=== PATIENT | male | born 1995 | race Caucasian/White ===

== ENCOUNTER 2016-11-09 09:08 | Observation (INO) ==
--- NOTE | 2016-11-09 10:29 | Emergency Department Note ---
Disposition Clinical Impression: Swallowed foreign body Qualifiers: Encounter type: initial encounter Qualified Code(s): T18.9XXA - Foreign body of alimentary tract, part unspecified, initial encounter Disposition: Admitted As Inpatient Condition: Good Time of Disposition: 13:21 General Adult HPI - General Chief complaint: ED General Medical Stated complaint: SWALLOWED FB Time Seen by Provider: 11/09/16 09:21 Source: patient, police Limitations: no limitations Nursing Notes Reviewed: Yes Vital Signs Reviewed: Yes - History of Present Illness HPI Narrative: Presents with complaint of left upper quadrant pain which started this morning and is constant and minimal to moderate and is sharp in character and began shortly after he swallowed several razor blades at the prison. This was witnessed by the staff. The patient has not had any urine output or bowel movements and does not know about blood in the urine or stool. No fever or vomiting or diarrhea. He has never tried to end his life however at this point does feel suicidal. He does not have a defined plan. He said he took the razor blades because his family is not speaking to them and hopefully this will help to get some to speak with him. He denies any visual or auditory hallucinations. Social history: Smoker Pain Scale: 5 - Related Data Home Medications Medication Instructions Recorded Confirmed Albuterol Sulfate [Ventolin Hfa] 2 puff IH Q6H PRN 11/09/16 11/09/16 Lansoprazole [Prevacid] 30 mg PO DAILY 11/09/16 11/09/16 Loratadine [Claritin] 10 mg PO DAILY 11/09/16 11/09/16 Tramadol HCl [Ultram] 50 mg PO QID PRN 11/09/16 11/09/16 Allergies Allergy/AdvReac Type Severity Reaction Status Date / Time azithromycin AdvReac Rash Verified 11/09/16 09:09 Review of Systems: Constitutional: No fever Vision: No blurred vision ENT: No rhinorrhea Respiratory: No cough Allergic: No allergies : No blood in urine GI: No blood in stool Hematologic: No bruising Dermatologic: No skin rash Musculoskeletal: No pain in the extremities Neuro: No numbness of the extremities Past Medical History - Past Medical History Medical history: Reports: other Surgical history: Reports: no surgical history Psychiatric history: Reports: no psych history - Social History Smoking Status: Current every day smoker Smokeless Tobacco Status: No Alcohol use: Reports: occasionally Drug use: Reports: none Physical Exam CONSTITUTIONAL: Alert and oriented X3, well-nourished, well appearing, in no apparent distress HEAD: Normocephalic; atraumatic. EYES: PERRL, no scleral icterus. NOSE: The nose is normal in appearance without rhinorrhea RESP: Normal chest excursion with respiration; breath sounds clear and equal bilaterally; no wheezes, rhonchi, or rales CARD: Regular rhythm, without murmurs, rub or gallop ABD: Non-distended; normal appearance, minimal discomfort with palpation left upper quadrant but soft without rigidity, rebound, guarding. Elsewhere the abdomen does have minimal discomfort right upper quadrant but very minimal,, elsewhere the abdomen is non-tender, soft,without rigidity, rebound or guarding SKIN: Normal for age and race; warm and dry; no apparent lesions - General Limitations: no limitations General appearance: alert Course Vital Signs Temperature 98.4 F 11/09/16 09:09 Pulse Rate 60 11/09/16 09:09 Respiratory Rate 20 11/09/16 09:09 Blood Pressure 129/84 11/09/16 09:09 O2 Sat by Pulse Oximetry 99 11/09/16 09:09 Temperature 98.4 F 11/09/16 09:09 Pulse Rate 47 11/09/16 12:48 Respiratory Rate 18 11/09/16 13:16 Blood Pressure 128/78 11/09/16 13:16 O2 Sat by Pulse Oximetry 98 11/09/16 12:48 Oxygen Delivery Oxygen Delivery Room Air Medical Decision Making - MDM Narrative Medical decision making narrative: Does show a metallic foreign body left upper abdomen without evidence of perforation and these results are reviewed and I did visualize the CT also. Patient does have labs ordered because will need to be evaluated by the 180 service for possible psychiatric services. We will discuss further with GI. 1029 I did review the patient's test results. I did speak with the hospitalist who accepts the patient for admission. I did speak with the [facility] service who would like the hospitalist to consult them for ongoing psychiatric care. I did speak with the ice guard tester and a formed and the patient was being admitted. The patient will have an acute abdominal series the morning and be closely monitored here in the hospital. 1320 - Lab Data Result diagrams: 11/09/16 10:36 11/09/16 10:36 Lab Results 11/09/16 11/09/16 11/09/16 Range/Units 10:23 10:36 10:36 WBC 4.6 (4.3-11.1) K/mcL RBC 5.00 (4.19-5.50) M/mcL Hgb 15.5 (12.9-16.9) g/dL Hct 42.8 (37.5-50.1) % MCV 85.6 (83.0-100.0) fL MCH 31.0 (28.0-33.3) pg MCHC 36.2 H (31.6-35.5) g/dL RDW 11.8 (11.5-14.5) % Plt Count 216 (140-400) K/mcL MPV 10.5 (9.4-12.4) fL Sodium 139 (136-145) mEq/L Potassium 4.2 (3.5-4.5) mEq/L Chloride 103 (98-109) mEq/L Carbon Dioxide 29 (19-29) mEq/L BUN 8 (8-26) mg/dL Creatinine 0.92 (0.72-1.25) mg/dL Est GFR ( Amer) > 60 (> 60) Est GFR (Non-Af Amer) > 60 (> 60) BUN/Creatinine Ratio 9 (6-26) Glucose 91 (70-99) mg/dL Calculated Osmolality 286 (280-300) Calcium 10.0 (8.6-10.8) mg/dL TSH (0.350-4.840) mcIU/mL Salicylates (15-30) mg/dL Urine Opiates Screen Negative (Yekbdm=085) ng/mL Acetaminophen (10-30) mcg/mL Ur Barbiturates Screen Negative (Ortixp=246) ng/mL Ur Phencyclidine Scrn Negative (Cutoff=25) ng/mL Ur Amphetamines Screen Negative (Tqgnmh=3305) ng/mL U Benzodiazepines Scrn Negative (Bpcwzr=602) ng/mL Urine Cocaine Screen Negative (Cutoff= 300) ng/mL U Marijuana (THC) Screen Negative (Cutoff = 50) ng/mL Ethyl Alcohol (0-10) mg/dL 11/09/16 Range/Units 10:36 WBC (4.3-11.1) K/mcL RBC (4.19-5.50) M/mcL Hgb (12.9-16.9) g/dL Hct (37.5-50.1) % MCV (83.0-100.0) fL MCH (28.0-33.3) pg MCHC (31.6-35.5) g/dL RDW (11.5-14.5) % Plt Count (140-400) K/mcL MPV (9.4-12.4) fL Sodium (136-145) mEq/L Potassium (3.5-4.5) mEq/L Chloride (98-109) mEq/L Carbon Dioxide (19-29) mEq/L BUN (8-26) mg/dL Creatinine (0.72-1.25) mg/dL Est GFR ( Amer) (> 60) Est GFR (Non-Af Amer) (> 60) BUN/Creatinine Ratio (6-26) Glucose (70-99) mg/dL Calculated Osmolality (280-300) Calcium (8.6-10.8) mg/dL TSH 1.696 (0.350-4.840) mcIU/mL Salicylates < 5.0 L (15-30) mg/dL Urine Opiates Screen (Clcmux=198) ng/mL Acetaminophen < 1.0 L (10-30) mcg/mL Ur Barbiturates Screen (Uskopr=237) ng/mL Ur Phencyclidine Scrn (Cutoff=25) ng/mL Ur Amphetamines Screen (Mkzvgl=2804) ng/mL U Benzodiazepines Scrn (Fadbvf=744) ng/mL Urine Cocaine Screen (Cutoff= 300) ng/mL U Marijuana (THC) Screen (Cutoff = 50) ng/mL Ethyl Alcohol < 10 (0-10) mg/dL
[2016-11-09 10:42] LABS: Amphetamine Screen,Urine Negative ng/mL (Cutoff=1000); Barbiturate Screen,Urine Negative ng/mL (Cutoff=200); Benzodiazepines Screen,Urine Negative ng/mL (Cutoff=200); Cannabinoid Screen,Urine Negative ng/mL (Cutoff = 50); Cocaine Screen,Urine Negative ng/mL (Cutoff= 300); Opiate Screen,Urine Negative ng/mL (Cutoff=300); Phencyclidine Screen,Urine Negative ng/mL (Cutoff=25)
[2016-11-09 10:46] LABS: Hematocrit 42.8 % (37.5-50.1); Hemoglobin 15.5 g/dL (12.9-16.9); Mean Corpuscular HGB Conc 36.2 g/dL (31.6-35.5); Mean Corpuscular Volume 85.6 fL (83.0-100.0); Mean Platelet Volume 10.5 fL (9.4-12.4); Platelet Count 216 K/mcL (140-400); Red Cell Distribution Width 11.8 % (11.5-14.5)
[2016-11-09 10:58] LABS: BUN/Creatinine Ratio 9 (6-26); Blood Urea Nitrogen 8 mg/dL (8-26); Carbon Dioxide 29 mEq/L (19-29); Chloride 103 mEq/L (98-109); Glucose 91 mg/dL (70-99); Osmolality,Calculated 286 (280-300); Potassium 4.2 mEq/L (3.5-4.5); Sodium 139 mEq/L (136-145); eGFR For African Americans > 60 (> 60); eGFR For Non-African Americans > 60 (> 60)
[2016-11-09 11:03] LABS: Acetaminophen < 1.0 mcg/mL (10-30); Ethanol < 10 mg/dL (0-10); Salicylate < 5.0 mg/dL (15-30)
[2016-11-09 11:19] LABS: Thyroid Stimulating Hormone 1.696 mcIU/mL (0.350-4.840)
[2016-11-09] MEDS ORDERED: Acetaminophen 325 MG TABLET PO PRN (14:20)
[2016-11-09] MEDS ORDERED: Naloxone 0.4 MG/ML INJ IVP PRN (14:20)
[2016-11-09] MEDS ORDERED: Ondansetron 4 MG/2 ML VIAL IVP PRN (14:20)
[2016-11-09] MEDS ORDERED: *HR* Morphine 2 MG/ML SYRINGE IVP PRN (14:20)
[2016-11-09] MEDS ORDERED: Ipratropium/Albuterol Neb 3 ML IH PRN (14:25)
--- NOTE | 2016-11-09 14:34 | Internal Med History&Physical ---
<Jem Patten - Last Filed: 11/09/16 15:34> Date of Encounter: 11/09/16 Time of Encounter: 13:45 Assessment and Plan (1) Swallowed foreign body Current visit: Yes Status: Acute Patient presents from ED due to swallowing a razor blade while incarcerated for [place]. Patient states that he swallowed one razor blade which was wrapped in plastic. CT of the abdomen and pelvis today without contrast shows retained radiodense foreign body within the jejunum correlating with patient's clinical history of razor blade swallowing. Will order follow-up CT to follow progression of the foreign body. Monitor I&O. Surgical consult ordered for recommendations on diet and follow-up imaging needs. Qualifiers: Encounter type: initial encounter Qualified Code(s): T18.9XXA - Foreign body of alimentary tract, part unspecified, initial encounter (2) Suicidal ideation Current visit: Yes Status: Acute Patient presents with attempted suicide by swallowing a razor blade while he was incarcerated. Patient reports that he has never attempted suicide previously and that he has never been hospitalized for suicide attempts or psychiatric reasons. Mr. Casillas states that he currently has no SI/HI and has no plan in place to harm himself or others. Patient states that he swallowed one razor blade that was wrapped in plastic. Sitter ordered. Psychiatric consult placed. Patient to be pink-slipped until cleared by Psychiatry. (3) Homeless Current visit: Yes Status: Acute Patient presents with report of being homeless prior to being incarcerated for [place] two weeks ago. Patient reports that he is estranged from his family due to his current life choices. SW consult ordered to assess patient for rehab needs regarding his reported marijuana use as well as his living situation needs. (4) Anxiety and depression Current visit: Yes Status: Acute Patient reports he was recently diagnosed with anxiety and depression is currently on medications due to being incarcerated prior to seeing provider. Psychiatry consult ordered to assess patient and make recommendations for treatment options post-discharge. (5) Bradycardia Current visit: Yes Status: Chronic Patient presents with history of bradycardia that he states he has had since childhood and which was diagnosed at [facility] years ago. On examination, patient's HR is 60 bpm and shows no signs of arrhythmia or murmur. Patient to be monitored. (6) DVT prophylaxis Current visit: Yes Status: Acute Patient to be placed on DVT prophylaxis due to current admission protocol. Due to patient swallowing razor blade which places him at increased risk for GI bleed, pharmacologic DVT prophylaxis is contraindicated. Bilateral SCDs to be placed on patient's LEs. Internal Medicine - H&P: HPI Chief complaint: Swallowed a razor blade Admitted From: Emergency Dept Plans for Post Hospital Care: Home History of present illness: Mr. Casillas is a 21 year old male with medical history of bradycardia. Patient denies any surgical history but states that he was recently diagnosed with anxiety and depression but does not currently take medications for these. Patient presents to the ED due to swallowing one razor blade wrapped in plastic while incarcerated for [place]. Patient states he has never tried to commit suicide before and does not have suicidal ideations or homicidal ideations at this time. Patient also states he has no plan for self-harm. Patient reports a rift with his family which is causing him anxiety and that he was homeless prior to incarceration. Mr. Casillas denies recent illness, fever, chills, nausea, vomiting, unusual bleeding, vision changes, headache, cough, diarrhea, constipation, dizziness, lightheadedness, presyncope, or syncope. Patient does report abdominal pain in the lower left quadrant on examination. On admission, patient's temperature is 98.4F, HR is 60 bpm, RR is 20, BP 129/84 , and SpO2 is 99% on RA. Patient's initial lab work on admission is unremarkable. Urine tox screen shows salicylates less than 5.0 and acetaminophen less than 1.0. Mr. Caslilas is at moderate risk for continued anxiety and depression due to not receiving current treatment, attempted self- harm, and current symptoms and will be placed as observation status. Psychiatric consult ordered with sitter in place. Information obtained from patient, chart reviewed, and previous medical records. Patient is currently hemodynamically stable and in no acute distress. Time spent with patient greater than 40 minutes. Past Med Surg Social Fam HX - Past Medical History Source: patient Medical history: other (Bradycardia) Psychiatric history: anxiety, depression - Past Surgical History Surgical History: no surgical history - Social History Smoking Status: Current every day smoker Packs per day: 1 PPD Smokeless Tobacco Status: No Alcohol use: none Drug use: marijuana Occupational status: unemployed Current living situation: Homeless Activity Level: Independent ambulation, Very active Recent Out of Country Travel Within the Last 8 Weeks: No Exposure or Possible Exposure to Illness During Travel: No - Family History Father Race: Family Member Ethnicity: Non- Living Status: Still Living Hx Family Cardiac Disorders: Yes (HTN) Hx Family Endocrine Disorder: Yes (DM) Mother Race: Family Member Ethnicity: Non- Living Status: Still Living Hx Family Cardiac Disorders: Yes (HTN) Brother Race: Family Member Ethnicity: Non- Living Status: Still Living Hx Family Psychosocial Disorders: Yes (Depression) Internal Medicine - H&P: Meds Albuterol Sulfate [Ventolin Hfa] 2 puff IH Q6H PRN 11/09/16 [History] Lansoprazole [Prevacid] 30 mg PO DAILY 11/09/16 [History] Loratadine [Claritin] 10 mg PO DAILY 11/09/16 [History] Tramadol HCl [Ultram] 50 mg PO QID PRN 11/09/16 [History] 3 Allergy/AdvReac Type Severity Reaction Status Date / Time azithromycin AdvReac Rash Verified 11/09/16 09:09 All Systems PM: A 10-system review of systems was performed and is negative for pertinent findings except as documented above in the HPI. - Constitutional Constitutional: no chills, no fever(s), no night sweats - EENT Eyes: no change in vision, no discharge, no pain, no photophobia Ears: no ear discharge, no ear pain, no tinnitus Nose, mouth and throat: no dysphagia, no nasal discharge, no neck pain, no sore throat - Breasts Breasts: as per HPI - Cardiovascular Cardiovascular ROS IM: as per HPI Additional comments: Bradycardia - Respiratory Respiratory: no cough, no dyspnea, no wheezing, no excessive phlegm production - Gastrointestinal Gastrointestinal: as per HPI, abdominal pain (LLQ) - Genitourinary Genitourinary ROS male: as per HPI - Musculoskeletal Musculoskeletal ROS IM: no numbness, no tingling - Integumentary Integumentary IM: no rash, no unusual bruising - Neurological Neurological ROS: no confusion, no convulsions, no focal weakness, no numbness, no tingling, no tremor(s) - Psychiatric Psychiatric: as per HPI - Endocrine Endocrine IM: as per HPI - Hematologic/Lymphatic Hematologic/Lymphatic: no easy bruising - Allergic/Immunologic Allergic/Immunologic: as per HPI - Constitutional Vitals: Temp Pulse Resp BP Pulse Ox 98.4 F 47 18 128/78 98 11/09/16 09:09 11/09/16 12:48 11/09/16 13:16 11/09/16 13:16 11/09/16 12:48 General appearance: Present: cooperative, A&O X 3, no acute distress, obese, answers questions appropriately - Head Head exam: Present: atraumatic, normocephalic - Eye Eye exam: Present: PERRL, conjuntiva pink, sclera anicteric Pupils: Present: PERRL - ENT ENT exam: Present: normal exam, normal external ear exam - Neck Neck exam general surgery: Present: normal inspection, supple, trachea midline. Absent: lymphadenopathy - Respiratory Respiratory exam: Present: CTAB. Absent: accessory muscle use, rales, rhonchi, wheezes - Cardiovascular Cardiovascular exam: Present: bradycardia - GI/Abdominal GI/Abdominal exam: Present: normal bowel sounds, soft, no peritoneal signs. Absent: distended, tenderness - Rectal Rectal exam: Present: deferred - Additional comments: exam deferred. - Extremities Exam Extremities exam: Present: warm, radial pulses palpable and symmetrical. Absent : calf tenderness, cyanotic, pedal edema - Back Exam Back exam: Present: normal inspection - Neurological Exam Neurological exam: Present: CN II-XII intact, oriented X3, no focal deficits. Absent: pronater drift, facial droop, speech deficit - Psychiatric Psychiatric exam: Present: normal affect, normal mood - Skin Skin exam: Present: dry, intact Internal Med - H&P Results - Labs CBC & Chem 7: 11/09/16 10:36 11/09/16 10:36 - Diagnostic Studies CT scan - abdomen Additional comments: Impressions Abdomen/Pelvis CT 11/09/16 09:40 IMPRESSION: 1. Retained radiodense foreign body within the jejunum correlating with patient's clinical history of razor blade. D/ / 11/09/2016 10:14:17 Thierry Schaefer MD / sunny Interpreting Provider: Thierry Schaefer MD <Júnior Lomas - Last Filed: 11/09/16 19:47> Date of Encounter: 11/09/16 Internal Medicine - H&P: HPI History of present illness: Mr. Casillas is a 21 year old male All Systems PM: A 10-system review of systems was performed and is negative for pertinent findings except as documented above in the HPI. - Constitutional Vitals: Temp Pulse Resp BP Pulse Ox 98.1 F 48 15 118/71 98 11/09/16 18:47 11/09/16 18:47 11/09/16 18:47 11/09/16 18:47 11/09/16 18:47 Internal Med - H&P Results - Labs CBC & Chem 7: 11/09/16 10:36 11/09/16 10:36 - Attending Attestation I independently obtained history and examined this patient and my medical decision-making was reviewed with the nurse practitioner, Jem Patten. I agree with the documented findings, disposition and treatment plan as described. My findings are summarized below: The patient is moderately depressed and he swallowed a razor blade wrapped in its original plastic with the intent to hurt himself while he was in custodial. I reviewed the imaging studies which show 1 razor blade and the jejunum. Plan: Suicidal precautions. Clear liquid diet. General surgical consult. Consider GI consult. Psychiatry consult.
[2016-11-09] MEDS: Pantoprazole 40 MG VIAL IVP SCH (14:53)
[2016-11-09] MEDS: Nicotine 14 MG PATCH.TD24 TD SCH (14:53)
[2016-11-09] MEDS: *HR* HYDROcodone/Acet 5/325 mg TABLET PO PRN ×2 (14:53→20:08)
[2016-11-09] MEDS ORDERED: Ketorolac 30 MG/ML VIAL IVP PRN (19:21)
[2016-11-10] MEDS: *HR* HYDROcodone/Acet 5/325 mg TABLET PO PRN ×3 (00:26→08:29)
[2016-11-10 04:38] LABS: Basophils % 0.6 %; Eosinophils # 0.1 K/mcL (0.0-0.6); Eosinophils % 2.7 %; Hematocrit 41.8 % (37.5-50.1); Hemoglobin 14.7 g/dL (12.9-16.9); Immature Granulocytes % 0.2 % (0-4); Lymphocytes # 2.2 K/mcL (0.6-4.6); Lymphocytes % 44.3 %; Mean Corpuscular HGB Conc 35.2 g/dL (31.6-35.5); Mean Corpuscular Hemoglobin 30.2 pg (28.0-33.3); Monocytes # 0.4 K/mcL (0.0-1.3); Monocytes % 8.6 %; Neutrophils # 2.1 K/mcL (1.6-8.9); Platelet Count 214 K/mcL (140-400); Red Blood Count 4.86 M/mcL (4.19-5.50); Red Cell Distribution Width 11.8 % (11.5-14.5); Segmented Neutrophils % 43.6 %
[2016-11-10 04:45] LABS: Hemoglobin A1C 4.6 %
[2016-11-10 04:55] LABS: Alanine Aminotransferase 12 Units/L (0-55); Albumin/Globulin Ratio 1.6 (1.1-2.2); Alkaline Phosphatase 57 Units/L (38-126); Aspartate Amino Transferase 11 Units/L (5-34); BUN/Creatinine Ratio 6 (6-26); Bilirubin,Total 0.7 mg/dL (0.2-1.2); Blood Urea Nitrogen 7 mg/dL (8-26); Calcium 9.5 mg/dL (8.6-10.8); Carbon Dioxide 28 mEq/L (19-29); Chloride 104 mEq/L (98-109); Chol/HDL Ratio 4.9 (0-4.9); Cholesterol 147 mg/dL (< 200); Globulin 2.5 g/dL (2.4-3.5); Glucose 81 mg/dL (70-99); HDL Cholesterol 30 mg/dL (40-59); LDL Cholesterol,Calculated 95 mg/dL (0-99); Magnesium 2.1 mg/dL (1.6-2.6); Osmolality,Calculated 287 (280-300); Potassium 4.1 mEq/L (3.5-4.5); Sodium 140 mEq/L (136-145); Total Protein 6.5 g/dL (6.0-8.3); Triglycerides 112 mg/dL (< 150); eGFR For African Americans > 60 (> 60); eGFR For Non-African Americans > 60 (> 60)
[2016-11-10] MEDS: Pantoprazole 40 MG VIAL IVP SCH (08:23)
--- NOTE | 2016-11-10 08:25 | Event Note ---
Date of Encounter: 11/10/16 Time of Encounter: 08:23 I have discussed the case with the surgeon plant protection guard. He stated to me that he is not comfortable consult pending on a patient with a foreign body in the GI tract secondary to a self-inflicted condition. He also told me that he would be available to see the patient if his condition were to progress to acute abdomen and bowel perforation, however it at this time the patient appears stable and therefore I will discontinue the consult. I will obtain a STAT CT abdomen and pelvis to f/u on the location of the razor blade.
[2016-11-10] MEDS: Nicotine 14 MG PATCH.TD24 TD SCH (08:28)
[2016-11-10] MEDS ORDERED: Loratadine 10 MG TABLET PO SCH (09:00)
[2016-11-10 10:52] VITALS: BP 119/73
--- NOTE | 2016-11-10 12:56 | Psychiatry Progress Note ---
Date of Encounter: 11/10/16 Time of Encounter: 12:46 Subjective Interval history: 21 year old WM with no past psychiatric history admitted to medical floor from shelter after he swallowed a razor. Pt reports that "shelter was making me crazy so i wrapped a razor in plastic and swallowed it". Pt reprots he was not trying to kill himself and reprots he knew what he was doign when he wrapped it in plastic first. He reports he has to go to court [place] and reports its for [place]. Pt reports he will be going to his brothers. Pt reports that he does not have current suicidal ideations/homicidal ideations. Pt reprots no other issues or concerns. Pt was not in any acute distress. Pt reports that he passed the razor already. 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[facility] [place] Plan: - dc home pt is not a threat to himself or others at this time Objective: Exam Patient orientation: Yes Person, Yes Time Level of alertness: Alert Patient appearance: Appropriate Behavior: calm Psychomotor activity: Normal Eye contact: Maintains Eye Contact Mood description: Euthymic/stable Affect description: congruent with mood Speech pattern: Normal rate, Normal rhythm, Normal tone Speech volume: Normal Thought process: Intact Thought content: Yes Intact Judgment: Fair Insight: Partial Results - Vital Signs Vital Signs: Temp Pulse Resp BP Pulse Ox 98.2 F 47 14 119/73 99 11/10/16 10:50 11/10/16 10:50 11/10/16 10:50 11/10/16 10:50 11/10/16 10:50 - Labs Labs: Laboratory Results - last 24 hr 11/10/16 11/10/16 11/10/16 03:43 03:43 03:43 WBC 4.9 RBC 4.86 Hgb 14.7 Hct 41.8 MCV 86.0 MCH 30.2 MCHC 35.2 RDW 11.8 Plt Count 214 MPV 11.0 Immature Gran % 0.2 Seg Neutrophils % 43.6 Lymphocytes % 44.3 Monocytes % 8.6 Eosinophils % 2.7 Basophils % 0.6 Neutrophils # 2.1 Lymphocytes # 2.2 Monocytes # 0.4 Eosinophils # 0.1 Basophils # 0.0 Sodium 140 Potassium 4.1 Chloride 104 Carbon Dioxide 28 BUN 7 L Creatinine 1.09 Est GFR ( Amer) > 60 Est GFR (Non-Af Amer) > 60 BUN/Creatinine Ratio 6 Glucose 81 Est Mean Plasma Glucose 85 Hemoglobin A1c 4.6 Calculated Osmolality 287 Calcium 9.5 Magnesium 2.1 Total Bilirubin 0.7 AST 11 ALT 12 Alkaline Phosphatase 57 Serum Total Protein 6.5 Albumin 4.0 Globulin 2.5 Albumin/Globulin Ratio 1.6 Triglycerides 112 Cholesterol 147 LDL Cholesterol, Calc 95 VLDL Cholesterol, Calc 22 HDL Cholesterol 30 L Cholesterol/HDL Ratio 4.9 - Impressions ITS Impressions Abdomen/Pelvis CT 11/10/16 08:33 IMPRESSION: The razor blade seen within the jejunum on yesterday's exam is no longer present, and has either been passed or removed. No evidence of a retained foreign body. No free air. D/ / Idris Nino MD / Idris Nino MD Interpreting Provider: Idris Nino MD Assessment and Plan (1) Anxiety and depression Current visit: Yes Status: Acute Additional Plan: dc home Risks, benefits, side effects, alternatives discussed w/pt: Yes Patient agreeable to treatment: Yes Consult Discharge Plan - Plan Referrals: NONE,PCP [Primary Care Provider] -
--- NOTE | 2016-11-12 20:17 | Discharge Summary ---
Date of Encounter: 11/10/16 Time of Encounter: 13:00 - Discharge Diagnosis (1) Anxiety and depression Priority: Secondary Status: Acute (2) Suicidal ideation Priority: Secondary Status: Acute (3) Swallowed foreign body Priority: Primary Status: Acute Qualifiers: Encounter type: initial encounter Qualified Code(s): T18.9XXA - Foreign body of alimentary tract, part unspecified, initial encounter (4) Bradycardia Priority: Secondary Status: Chronic - Discharge Medications Home Medications: Albuterol Sulfate [Ventolin Hfa] 2 puff IH Q6H PRN 11/09/16 [History] Lansoprazole [Prevacid] 30 mg PO DAILY 11/09/16 [History] Loratadine [Claritin] 10 mg PO DAILY 11/09/16 [History] Tramadol HCl [Ultram] 50 mg PO QID PRN 11/09/16 [History] Allergies/Adverse Reactions: 3 Allergy/AdvReac Type Severity Reaction Status Date / Time azithromycin AdvReac Rash Verified 11/09/16 09:09 Procedures/tests Complete & Pending: Procedures Performed prior 72 hours Category Date Time Status CT abd pelvis wo no iv no oral [CT] Stat Cat Scan 11/10/16 08:33 Completed Date of admission: 11/09/16 13:02 Primary care physician: PCP NONE Consults: 11/09/16 14:22 Consult to [employer] [CONS] Routine Reason for SW Consult: Patient states during exam that he was homeless prior to going to alf for [place]. Also reports marijuana use. Assess for rehab/living situation needs. 11/09/16 14:26 Consult to Psychiatry [CONS] Routine Consulting Provider: Psychiatry Eun Reason for Consult: Patient swallowed razor blade while incarcerated for [place]. Isabella denies any current SI/HI ideations and reports he has not attempted suicide previously. Patient reports he has no plan at this time for self-harm. Patient was recently dx w/anxiety & depression but is not on medications currently. States he was homeless prior to incarceration and has issues with his family that is causing his anxiety. Call Completed: Yes - Patient Status Disposition: Home, Self-Care Condition: Good Functional capacity at discharge: independent ambulation Overall status at discharge: patient is back to baseline - Discharge Instructions Follow Up With: NONE,PCP [Primary Care Provider] - - Diet and Activity Diet: advance to your usual diet Hospital course: Mr. Casillas is a 21 year old male currently detained in alf who reported feeling depressed and having been through a stressful situation with his family he swallowed a razor blade. He initially was deemed suicidal. Imaging revealed the metallic foreign body in the proximal jejunum. He was admitted to the medical service for further care. Psychiatry was consulted. He was kept on clear liquid diet. The second day of hospitalization he passed a bowel movement and soon thereafter a CT scan of the abdomen revealed that the foreign body previously noted on the CT was now absent. His abdominal exam has been within normal limits. He has tolerated diet. He was evaluated by psychiatry and deemed to be not a threat to self or others. He was discharged home and instructed to call the alf as soon as his out of the hospital. - Time Spent with Patient Total time spent providing and/or coordinating discharge services: - Constitutional Vitals: Temp Pulse Resp BP Pulse Ox 98.2 F 47 14 119/73 99 11/10/16 10:50 11/10/16 10:50 11/10/16 10:50 11/10/16 10:50 11/10/16 10:50 General appearance: Present: cooperative, A&O X 3, no acute distress, obese, answers questions appropriately - Respiratory Respiratory exam: Present: CTAB. Absent: accessory muscle use, rales, rhonchi, wheezes - Cardiovascular Cardiovascular exam: Present: RRR, +S1, +S2. Absent: diastolic murmur, gallop, rubs, systolic murmur - GI/Abdominal GI/Abdominal exam: Present: normal bowel sounds, soft, no peritoneal signs. Absent: distended, tenderness
== END 2016-11-10 14:15 | disposition home or self-care (01) ==
LOC: EMEROO 09:08 → 3BNU 09:08 → SUATTDRO 13:02 → 3BNU 13:24
PROVIDERS: ADMIT Registered Nurse; ATTEND Internal Medicine